=== PATIENT | female | born 1970 | race Caucasian/White ===

== ENCOUNTER 2018-03-30 17:43 | Emergency (ER) | END 2018-03-30 18:25 | disposition left against medical advice (07) ==

== ENCOUNTER 2018-12-15 06:16 | Day surgery (SDC) | payer OTHER ==
[2018-12-13 16:33] VITALS: Ht 157.5 cm; Wt 68.0 kg
[~2018-12-15] VITALS: Ht 157.5 cm; Wt 68.0 kg
[2018-12-15] VITALS (19 sets, daily range): BP systolic 98–157; BP diastolic 55–82; PULSE 78–99; RESP 11–29
[2018-12-15] MEDS ORDERED: SEVOFLURANE 15 MIN ONE (07:00)
[2018-12-15] MEDS ORDERED: CEFAZOLIN 1 GM INJ ONE (07:00)
[2018-12-15] MEDS ORDERED: DULO60CA6 PO (07:24)
[2018-12-15] MEDS ORDERED: ATOR20TA38 PO (07:24)
[2018-12-15] MEDS ORDERED: ASPI-903 PO (07:24)
[2018-12-15] MEDS ORDERED: ALBU18HF IN (07:24)
[2018-12-15] MEDS ORDERED: MIRT15TA5 PO (07:24)
[2018-12-15] MEDS ORDERED: EZET10TA32 ORAL (07:24)
--- NOTE | 2018-12-15 07:24 | PREAC ---
Date/Time of Note Date/Time of Note DATE: 12/15/18 TIME: :24 Anesthesia Eval and Record Evaluation Time Pre-Procedure Interview DATE: 12/15/18 TIME: :24 Age 48 Sex female NPO: 8 hrs Preoperative diagnosis Rotator cuff tear, right shoulder Planned procedure Operative arthroscopy, subacromial decompression, rotator cuff repair Past Medical History Past Medical History: Includes Cardio: Dyslipidemia Pulm: Asthma Psych: Depression Surgery & Anesthesia Issues No known issue Meds Anticoagulation: No Beta Felisha within 24 hr: No Reason Beta Felisha not given: Pt. not on B-Felisha Reported Medications Albuterol Sulfate* (Ventolin HFA*) 18 Gm Hfa.aer.ad, 2 PUFF IN Q4 PRN for SHORTNESS OF BREATH 12/15/18 Ezetimibe (Ezetimibe) 10 Mg Tablet, 1 TAB ORAL DAILY 12/15/18 Atorvastatin Calcium* (Atorvastatin Calcium*) 20 Mg Tablet, 20 MG PO QHS, #30 TAB 12/15/18 Mirtazapine* (Mirtazapine*) 15 Mg Tablet, 15 MG PO HS, TAB 12/15/18 Duloxetine Hcl* (Cymbalta*) 60 Mg Capsule.dr, 60 MG PO DAILY, CAP 12/15/18 Aspirin* (Aspirin* Chew) 81 Mg Tab.chew, 81 MG PO DAILY, TAB.CHEW 12/15/18 Current Medications Lactated Ringer's 1,000 ml @ 25 mls/hr Q24H IV Last administered on 12/15/18at 07:20; Admin Dose 25 MLS/HR; Start 12/15/18 at 07:30 Meds reviewed: Yes Allergies Coded Allergies: No Known Allergy (Unverified , 12/15/18) Allergies Reviewed: Yes Labs/Studies Labs Reviewed: Reviewed by anesthesiologist test: Negative ( ) Pre-procedure Exam Last vitals Vital Signs Date Temp Pulse Resp B/P (MAP) Pulse Ox O2 O2 Flow FiO2 Time Delivery Rate 12/15/18 97.4 87 18 134/82 96 Room Air 07:13 (99) Airway: Adequate mouth opening Mallampati: Mallampati I Teeth: Normal Lung: Normal Heart: Normal ASA Physical Status ASA physical status: 2 Emergency: None Planned Anesthetic General/MAC: ETT Planned Pain Management Single shot nerve block, Parenteral pain med Pre-operative Attestations Prior to commencing anesthesia and surgery, the patient was re-evaluated, there was verification of: *The patient's identity *The results of appropriate recent lab work and preoperative vital signs *The above evaluation not changing prior to induction *Anesthetic plan, risk benefits, alternative and complications discussed with patient/family; questions answered; patient/family understands, accepts and wishes to proceed. PETE TORRES MD December 15, 2018 07:24
[2018-12-15] MEDS ORDERED: LACTATED RINGER'S 1,000 ML IV SCH (07:30)
[2018-12-15] MEDS ORDERED: LIDOCAINE 2% (SDV) 5 ML INJ ONE (07:41)
[2018-12-15] MEDS ORDERED: SUCCINYLCHOLINE CHLORIDE 100 MG/5 ML SYG IV ONE (07:41)
[2018-12-15] MEDS ORDERED: PROPOFOL 20 ML ONE (07:41)
[2018-12-15] MEDS ORDERED: ROCURONIUM 50 MG INJ ONE ×2 (07:41→09:34)
[2018-12-15] MEDS ORDERED: NEOSTIGMINE 3 MG/3 ML SYRINGE ONE (07:41)
[2018-12-15] MEDS ORDERED: GLYCOPYRROLATE 0.4 MG INJ ONE ×2 (07:41→09:34)
[2018-12-15] MEDS ORDERED: ROPIVACAINE 0.5 % 30 ML VIAL ONE (07:45)
[2018-12-15] MEDS ORDERED: MIDAZOLAM 1 MG/ML 2 ML INJ ONE (07:59)
[2018-12-15] MEDS ORDERED: METOCLOPRAMIDE 10 MG INJ ONE (08:37)
[2018-12-15] MEDS ORDERED: ONDANSETRON 4 MG INJ ONE (08:37)
[2018-12-15] MEDS ORDERED: FENTAnyl 50 MCG/ML VIAL IV PRN ×3 (09:00)
[2018-12-15] MEDS ORDERED: LABETALOL HCL 20MG INJ IV PRN (09:00)
[2018-12-15] MEDS ORDERED: OXYCODONE/ACETAMINOPHEN (5/325) TAB PO PRN ×2 (09:00)
[2018-12-15] MEDS ORDERED: ONDANSETRON 4 MG INJ IV PRN ×2 (09:00→11:00)
[2018-12-15] MEDS ORDERED: hydrALAzine 20 MG INJ IV PRN (09:00)
[2018-12-15] MEDS ORDERED: MEPERIDINE 25 MG INJ IV PRN (09:00)
[2018-12-15] MEDS ORDERED: EPHEDrine 25 MG/5 ML SYG IV PRN (09:00)
[2018-12-15] MEDS ORDERED: METOCLOPRAMIDE 10 MG INJ IV PRN (09:00)
[2018-12-15] MEDS ORDERED: MIDAZOLAM 1 MG/ML 2 ML INJ IV PRN (09:00)
[2018-12-15] MEDS ORDERED: HYDROmorphONE 1 MG/5 ML IV SYRINGE IV PRN ×3 (09:00)
[2018-12-15] MEDS ORDERED: DIPHENHYDRAMINE 50 MG INJ IV PRN (09:00)
[2018-12-15] MEDS ORDERED: LABETALOL HCL 20MG INJ ONE (09:23)
[2018-12-15] MEDS ORDERED: EPINEPHrine 1 MG/ML 30 ML INJ IRR ONE (09:43)
[2018-12-15] MEDS ORDERED: FENTAnyl 50 MCG/ML VIAL ONE (10:19)
[2018-12-15] MEDS ORDERED: BACITRACIN/POLYMYXIN 28.35 GM OINT TOP ONE (10:23)
[2018-12-15] MEDS ORDERED: HYDROCODONE/APAP (5/325) TAB PO PRN ×2 (11:00)
--- NOTE | 2018-12-15 11:18 | SIPON ---
Date/Time of Note Date/Time of Note DATE: 12/15/18 TIME: 11:16 Operative Report Preoperative Diagnosis Right shoulder rotator cuff tear Postoperative Diagnosis Right shoulder rotator cuff tear Operation/Procedure Performed Right shoulder arthroscopy, SAD, rotator cuff repair Surgeon Jamie Raymond signature line office assistant receptionist Lex Mcknight MD Anesthesia: general, other Estimated blood loss: minimal Transfusion Required none Specimen none Grafts/Implants 2 threvo anchors Complications none LEX MCKNIGHT MD December 15, 2018 11:18
--- NOTE | 2018-12-15 11:57 | PAC ---
Date/Time of Note Date/Time of Note DATE: 12/15/18 TIME: 11:57 Post-Anesthesia Notes Post-Anesthesia Note Last documented vital signs Vital Signs Date Temp Pulse Resp B/P (MAP) Pulse Ox O2 O2 Flow FiO2 Time Delivery Rate 12/15/18 82 19 100/58 99 Room Air 11:27 (72) 12/15/18 98.0 10:42 Activity: WNL Respiratory function: WNL Cardiovascular function: WNL Mental status: Baseline Pain reasonably controlled: Yes Hydration appropriate: Yes Nausea/Vomiting absent: Yes Comments BT: 98.3 PETE TORRES MD December 15, 2018 11:57
--- NOTE | 2018-12-19 13:59 | OPR ---
DATE OF OPERATION: 12/15/2018 PREOPERATIVE DIAGNOSIS: Right shoulder rotator cuff tear. POSTOPERATIVE DIAGNOSIS: Right shoulder rotator cuff tear. OPERATION PERFORMED: 1. Right shoulder operative arthroscopy, subacromial decompression. 2. Right rotator cuff repair. SURGEON: Mikhail Ramirez MD OPERATIONS TECHNICIAN: Dr. Nye. ANESTHESIA: General interscalene block. INDICATIONS: The patient was diagnosed with right shoulder rotator cuff tear, failed conservative nolan atment, and was indicated for the above procedures. The purpose, method, and alternative options of t reatment, including no surgery, were discussed. The potential risks and complications of surgery, inc luding the risk of anesthesia which includes heart attack, stroke, and ; the risk of infection, risk of injury to arteries, nerves, or tendons; the risk of breakage to the bone, risk of breakage of hardware within the bone, risk of loosening of hardware, risk of malpositioning of the bone, risk of nonhealing of the bone; all of which may require additional surgery, were explained, as well as the possibility for the need of hardware removal in the future, the possibility of persistent pain, stiff ness, weakness, or recurrence of the problem despite adequate surgery, and the possibility of reflex sympathetic dystrophy. The patient understood the above and agreed to the above procedure. PROCEDURE: The patient was brought to the operating room and placed on the operating room table in th e supine position. After interscalene block was performed by Anesthesia and general anesthesia was ad ministered by endotracheal intubation, the patient was placed in the decubitus position, right side d own, right side up, on a kidney rest and beanbag with an axillary roll, and all bony prominences were well padded. The patient's right arm was examined under anesthesia and found to have full range of motion without evidence of instability anteriorly, posteriorly, or inferiorly. The patient's right a rm was prepped and draped in the usual manner using Betadine gel and sterile towels, and hung to a St ar sleeve in 10 pounds of traction with the arm at 45 degrees of abduction and 10 degrees of forward flexion. A posterior portal was established 2 cm distal and 2 cm medial to the posterolateral acromio n and brought down using blunt dissection with a trocar, entering the posterior capsule. An anterior portal was established using the Wissinger method. FINDINGS: The patient was seen abnormal biceps tendon with normal attachment of the biceps to superio r labrum, normal attached superior labrum to superior glenoid, normal posterior labrum and inferior r ecess and articular surface was normal. The rotator cuff was seen to have a complete tear of the sup raspinatus and a large portion of the infraspinatus. The posterior infraspinatus and teres minor wer e intact. The humeral head was normal. Humeral head articular surface was normal. Anteriorly, the subscapularis tendon was intact with normal middle and inferior glenohumeral ligaments, normal anteri or labrum. Visualization from anteriorly with similar findings were found. The patient was placed in the bursoscopy position with the arm in 20 degrees of abduction and 12 poun ds of traction. The same anterior and posterior portals were used, and an additional lateral portal w as established 1 cm lateral to the midlateral acromion. The bursa was examined and seen to be inflame d and a partial bursectomy was performed using the 4.5 full-radius shaver and 4.0 acromionizer bur an d radiofrequency wand. Subacromial decompression was performed, beginning at the midacromion and working anteriorly, removin g minimal bone at the midacromion but eventually removing a total of approximately 5 mm of bone anter iorly. A smooth acromial surface was obtained. Care was taken to make sure that the bone was comple tely removed anterolaterally, as well as anteromedially. Attention was addressed to the rotator cuff tear which was seen to be 4 cm wide with 2 cm of retracti on. The rotator cuff edges were freshened with the 4.5 full-radius shaver, and the point of avulsion from the greater tuberosity was freshened to bleeding bone with the 4.5 full-radius shaver. This was done just lateral to the humeral head articular surface. The rotator cuff was then repaired using no sisy-ay-amvy sutures using a crescent hook and suture Shuttle Relay and knot-tying techniques with 2- 0 Panacryl. The remaining cuff was then repaired to the greater tuberosity using 3 Super Revo triple- loaded suture anchors which were placed through a separate stab incision more medial than the lateral portal at the lateral edge of the acromion. The sutures were passed through the tissue with crescent hooks or angled suture passers. Using a suture Shuttle Relay and arthroscopic knot-tying techniques, the rotator cuff was repaired securely to the freshened surface of the greater tuberosity. A complet e tight repair was achieved. The wound was irrigated and closed with 3-0 nylon horizontal mattress sutures. A soft bulky dressing with a cold therapy pad was applied and an UltraSling. The estimated blood loss was negligible, and the wounds were clean. The sponge and instrument counts were correct. The patient tolerated the pro cedure well and was transferred to the recovery room in stable condition. Dictated By: MIKHAIL PATRICK/THIERNO Conf#: [id number] DID#: [id number]
== END 2018-12-15 13:42 | disposition home or self-care (01) ==
LOC: SDS 06:16
PROVIDERS: ATTEND Orthopaedic Surgery
DX: M75.101 Unspecified rotator cuff tear or rupture of right shoulder, not specified as traumatic (principal); J45.909 Unspecified asthma, uncomplicated
CPT/HCPCS: 29826; 29827; C1713; J0690; J2175; J2250; J2405; J2710; J2765; J2795; J3010; J0171

== ENCOUNTER 2019-03-30 09:03 | Day surgery (SDC) | payer OTHER ==
[~2019-03-30] VITALS: Ht 157.5 cm; Wt 67.6 kg
[~2019-03-30 09:03] MED LIST: ALBU18HF IN; ASPI-903 PO; ATOR20TA38 PO; CETI10TA19 PO; DULO60CA6 PO; EZET10TA32 ORAL; MIRT15TA5 PO; OMEG-80 PO; VIT D 2000 UNIT
[2019-03-30 10:47] VITALS: Ht 157.5 cm; Wt 67.6 kg
[2019-03-30 11:13] VITALS: BP 131/75; PULSE 71; RESP 18
[2019-03-30] MEDS ORDERED: PROPOFOL 40 ML ONE (11:33)
[2019-03-30] MEDS ORDERED: LIDOCAINE 2% (SDV) 5 ML INJ ONE (11:33)
[2019-03-30] MEDS ORDERED: ONDANSETRON 4 MG INJ IV PRN (12:00)
[2019-03-30] MEDS ORDERED: ALBUTEROL 0.083% (NEB) 2.5 MG/3 ML AMP HHN PRN (12:00)
[2019-03-30 12:29] VITALS: BP 124/65; RESP 20
== END 2019-03-30 14:26 | disposition home or self-care (01) ==
LOC: GIL 09:03
PROVIDERS: ATTEND Internal Medicine Gastroenterology
DX: R19.5 Other fecal abnormalities (principal)
CPT/HCPCS: 45378; 84703; Z7610